=== PATIENT | female | born 1935 | race Caucasian/White ===

== ENCOUNTER 2023-12-17 16:42 | Inpatient (IN) | payer MEDICARE, OTHER ==
[~2023-12-17] VITALS: Ht 165.1 cm; Wt 61.8 kg
[2023-12-17] MEDS ORDERED: APIX5TAB PO (17:20)
[2023-12-17] MEDS ORDERED: MEMA10TA PO (17:20)
[2023-12-17] MEDS ORDERED: FAMO10TA41 PO (17:20)
[2023-12-17] MEDS ORDERED: COLL30OI TOP (17:20)
[2023-12-17] MEDS ORDERED: NA P133E RC (17:20)
[2023-12-17] MEDS ORDERED: MAGN400O6 PO (17:20)
[2023-12-17] MEDS ORDERED: ASCO500C18 PO (17:20)
[2023-12-17] MEDS ORDERED: VALP250S3 PO (17:20)
[2023-12-17] MEDS ORDERED: DOCU100T2 PO (17:20)
[2023-12-17] MEDS ORDERED: AMLO5TAB4 PO (17:20)
[2023-12-17] MEDS ORDERED: MELA3CAP2 PO (17:20)
[2023-12-17] MEDS ORDERED: MIRT7.5T10 PO (17:20)
[2023-12-17] MEDS ORDERED: ACET325C7 PO (17:20)
[2023-12-17] MEDS ORDERED: BISA10SU61 RC (17:20)
[2023-12-17] MEDS ORDERED: AMIN30LI2 PO (17:20)
[2023-12-17] MEDS ORDERED: MULT-213 PO (17:20)
[2023-12-17] MEDS ORDERED: ZINC220T4 PO (17:20)
[2023-12-17 18:11] LABS: BASOPHILS % (AUTO) 0.6 % (0.0-2.0); EOSINOPHILS # (AUTO) 0.6 K/uL (0.0-0.7); EOSINOPHILS % (AUTO) 9.4 % (0.0-7.0); HEMATOCRIT 36.8 % (31.2-41.9); HEMOGLOBIN 11.6 g/dL (10.9-14.3); LYMPHOCYTES # (AUTO) 1.3 K/uL (0.8-4.8); LYMPHOCYTES % (AUTO) 21.4 % (20.5-51.5); MEAN CORPUSCULAR HGB CONC 32 g/dL (32.3-35.6); MEAN CORPUSCULAR VOLUME 91.8 fL (75.5-95.3); MONOCYTES # (AUTO) 0.5 K/uL (0.1-1.30); MONOCYTES % (AUTO) 7.6 % (0.0-11.0); NEUTROPHILS # (AUTO) 3.8 K/uL (1.8-8.9); PLATELET COUNT (AUTO) 222 K/uL (179-408); RED BLOOD CELL COUNT(AUTO) 4.01 MIL/uL (3.63-4.92); RED CELL DISTRIBUTION WIDTH 14.3 % (12.3-17.7); WHITE BLOOD COUNT (AUTO) 6.3 K/uL (3.8-11.8)
[2023-12-17 18:13] LABS: DIFFERENTIAL COMMENT 1
[2023-12-17] MEDS ORDERED: ACETAMINOPHEN 325 MG TABLET PO PRN (18:15)
[2023-12-17] MEDS ORDERED: MAGNESIUM HYDROXIDE 30 ML LIQUID UDC PO PRN (18:15)
[2023-12-17] MEDS ORDERED: REMEDY ESSENTIAL ZINC PASTE 113 GM TP PRN (18:15)
[2023-12-17] MEDS ORDERED: ONDANSETRON 4 MG/2 ML VIAL IV PRN (18:15)
[2023-12-17] MEDS: IV NORMAL SALINE 500 ML BAG IV ONE (18:21)
[2023-12-17 18:23] LABS: *BILIRUBIN,URIN NEGATIVE (NEGATIVE); *BLOOD, URINE 1+ (NEGATIVE); *CLARITY,URINE CLOUDY (CLEAR); *COLOR,URINE YELLOW (YELLOW); *KETONES,URINE NEGATIVE (NEGATIVE); *PROTEIN,URINE NEGATIVE (NEGATIVE); *UROBILINOGEN,URINE 0.2 E.U./dl (NORMAL); LEUKOCYTE ESTERASE ,URINE TRACE (NEGATIVE); NITRITE, URINE NEGATIVE (NEGATIVE); UGLUCOSE NEGATIVE (NEGATIVE)
[2023-12-17 18:25] LABS: WBC,URINE 0-3 /HPF (0-3)
[2023-12-17 18:38] LABS: CALCIUM 9.1 mg/dL (8.5-10.1); POTASSIUM 4.7 mmol/L (3.5-5.1)
[2023-12-17 18:45] LABS: ALBUMIN 2.9 g/dL (3.4-5.0); BILIRUBIN,DIRECT 0.1 mg/dL (0.0-0.2); BILIRUBIN,TOTAL 0.4 mg/dL (0.2-1.0); TOTAL PROTEIN, SERUM 7.4 g/dL (6.4-8.2)
[2023-12-17] MEDS ORDERED: LORAZEPAM 2 MG/1 ML VIAL ONE (19:20)
[2023-12-17] MEDS ORDERED: CEFTRIAXONE /D5W 50ML IVPB **ER PYXIS IV ONE (19:34)
[2023-12-17] MEDS: AZITHROMYCIN IV 500 MG in IV DEXTROSE 5% 250 ML IV ONE (19:40)
[2023-12-17] MEDS: LORAZEPAM 2 MG/1 ML VIAL IV ONE (19:40)
[2023-12-17] MEDS: CEFTRIAXONE 1 G in IV DEXTROSE 5% 50 ML IV ONE (19:40)
[2023-12-17] MEDS ORDERED: AZITHROMYCIN 500MG/ D5W 250ML IVPB **ER PYXIS ONLY IV ONE (19:41)
[2023-12-17] MEDS ORDERED: DEXTROSE 50% 50 ML DISP.SYRIN ONE (20:45)
[2023-12-17] MEDS: DEXTROSE 50% 50 ML DISP.SYRIN IV ONE (20:50)
[2023-12-17] MEDS ORDERED: METOCLOPRAMIDE HCL 10 MG/2 ML VIAL IV ONE (21:30)
[2023-12-17 22:45] VITALS: BP 120/69; TEMP 96.4; O2SAT 95
[2023-12-18 04:00] VITALS: BP 93/54; TEMP 98; O2SAT 95
[2023-12-18 06:00] VITALS: BP 95/55; TEMP 98.2; O2SAT 96
[2023-12-18 07:38] LABS: BASOPHILS % (AUTO) 0.4 % (0.0-2.0); EOSINOPHILS # (AUTO) 0.6 K/uL (0.0-0.7); EOSINOPHILS % (AUTO) 12.2 % (0.0-7.0); HEMATOCRIT 33.4 % (31.2-41.9); HEMOGLOBIN 10.8 g/dL (10.9-14.3); LYMPHOCYTES # (AUTO) 1.3 K/uL (0.8-4.8); MEAN CORPUSCULAR HEMOGLOBIN 29.4 uug (24.7-32.8); MEAN CORPUSCULAR HGB CONC 32 g/dL (32.3-35.6); MEAN CORPUSCULAR VOLUME 91.3 fL (75.5-95.3); MONOCYTES # (AUTO) 0.3 K/uL (0.1-1.30); MONOCYTES % (AUTO) 6.6 % (0.0-11.0); NEUTROPHILS # (AUTO) 2.8 K/uL (1.8-8.9); NEUTROPHILS % (AUTO) 54.8 % (38.5-71.5); PLATELET COUNT (AUTO) 187 K/uL (179-408); RED BLOOD CELL COUNT(AUTO) 3.66 MIL/uL (3.63-4.92); RED CELL DISTRIBUTION WIDTH 14.4 % (12.3-17.7)
[2023-12-18 07:57] LABS: CALCIUM 8.1 mg/dL (8.5-10.1); CREATININE 0.9 mg/dL (0.6-1.3); MAGNESIUM 2.1 mg/dL (1.8-2.4); PHOSPHOROUS 3.1 mg/dL (2.5-4.9)
[2023-12-18 07:58] LABS: DIFFERENTIAL COMMENT 1
[2023-12-18 11:05] VITALS: BP 125/78; TEMP 98.4; O2SAT 95
[2023-12-18 15:11] VITALS: BP 129/87; TEMP 97.6; O2SAT 96
[2023-12-18 21:20] VITALS: BP 116/83; TEMP 98.4; O2SAT 96
[2023-12-19 06:00] VITALS: BP 106/62; TEMP 98.6; O2SAT 96
[2023-12-19 07:32] LABS: CALCIUM 8.6 mg/dL (8.5-10.1); CREATININE 0.9 mg/dL (0.6-1.3)
[2023-12-19 07:33] LABS: BASOPHILS % (AUTO) 0.3 % (0.0-2.0); EOSINOPHILS # (AUTO) 0.6 K/uL (0.0-0.7); EOSINOPHILS % (AUTO) 9.9 % (0.0-7.0); HEMATOCRIT 31.2 % (31.2-41.9); HEMOGLOBIN 10.3 g/dL (10.9-14.3); LYMPHOCYTES # (AUTO) 1.3 K/uL (0.8-4.8); LYMPHOCYTES % (AUTO) 22.3 % (20.5-51.5); MEAN CORPUSCULAR HEMOGLOBIN 29.7 uug (24.7-32.8); MEAN CORPUSCULAR HGB CONC 33 g/dL (32.3-35.6); MONOCYTES # (AUTO) 0.3 K/uL (0.1-1.30); MONOCYTES % (AUTO) 5.6 % (0.0-11.0); NEUTROPHILS # (AUTO) 3.5 K/uL (1.8-8.9); NEUTROPHILS % (AUTO) 61.9 % (38.5-71.5); PLATELET COUNT (AUTO) 186 K/uL (179-408); RED BLOOD CELL COUNT(AUTO) 3.47 MIL/uL (3.63-4.92); RED CELL DISTRIBUTION WIDTH 14.1 % (12.3-17.7); WHITE BLOOD COUNT (AUTO) 5.6 K/uL (3.8-11.8)
[2023-12-19 07:38] LABS: DIFFERENTIAL COMMENT 1
[2023-12-19] MEDS: AZITHROMYCIN IV 500 MG in IV DEXTROSE 5% 250 ML IV SCH (10:53)
[2023-12-19 11:08] VITALS: BP 114/61; TEMP 98.2; O2SAT 96
[2023-12-19] MEDS: TRIAMCINOLONE ACET 0.1% CREAM 15 GM TUBE TOP PRN (15:23)
[2023-12-19 15:25] VITALS: BP 125/85; TEMP 97.8; O2SAT 96
[2023-12-19] MEDS ORDERED: BISACODYL 10 MG SUPP.RECT RC PRN (17:30)
[2023-12-19] MEDS ORDERED: MAGNESIUM HYDROXIDE 30 ML LIQUID UDC PO PRN (17:30)
[2023-12-19] MEDS ORDERED: FLEET ENEMA 133 ML BOTTLE RC PRN (17:30)
[2023-12-19 20:00] VITALS: BP 105/43; TEMP 98.8; O2SAT 94
[2023-12-19] MEDS: MIRTAZAPINE 15 MG TABLET PO SCH (20:48)
[2023-12-19] MEDS: MELATONIN 3 MG TABLET PO SCH (20:48)
[2023-12-20] MEDS: FAMOTIDINE 20 MG TABLET PO SCH (05:12)
[2023-12-20 06:56] VITALS: BP 120/67; TEMP 98; O2SAT 100
[2023-12-20] MEDS ORDERED: COLLAGENASE OINT 30 GM TUBE TOP SCH (09:00)
[2023-12-20] MEDS: MEMANTINE HCL 10 MG TABLET PO SCH (11:07)
[2023-12-20] MEDS: DOCUSATE SODIUM 100 MG CAPSULE PO SCH (11:07)
[2023-12-20] MEDS: VALPROIC ACID 250 MG/5 ML LIQUID UDC PO SCH (11:07)
[2023-12-20] MEDS: AMLODIPINE 5 MG TABLET PO SCH (11:07)
[2023-12-20] MEDS: APIXABAN 5 MG TABLET PO SCH (11:09)
[2023-12-20 11:48] VITALS: BP 110/67; TEMP 97.8; O2SAT 94
[2023-12-20] MEDS: MEDIHONEY= THERAHONEY 1.5 OZ TUBE TOP SCH (13:00)
== END 2023-12-20 14:00 | DRG 193 ==
LOC: ER 16:46 → MEDSURG3 21:31
PROVIDERS: ADMIT Internal Medicine; ATTEND Internal Medicine
DX: J15.9 Unspecified bacterial pneumonia (principal); E43 Unspecified severe protein-calorie malnutrition; G93.41 Metabolic encephalopathy; E86.0 Dehydration; R53.1 Weakness; E88.09 Other disorders of plasma-protein metabolism, not elsewhere classified; I48.91 Unspecified atrial fibrillation; Z79.01 Long term (current) use of anticoagulants; E78.5 Hyperlipidemia, unspecified; R79.89 Other specified abnormal findings of blood chemistry; R21 Rash and other nonspecific skin eruption; I12.9 Hypertensive chronic kidney disease with stage 1 through stage 4 chronic kidney disease, or unspecified chronic kidney disease; N18.9 Chronic kidney disease, unspecified; Z79.899 Other long term (current) drug therapy; F03.90 Unspecified dementia, unspecified severity, without behavioral disturbance, psychotic disturbance, mood disturbance, and anxiety; Z86.59 Personal history of other mental and behavioral disorders
CPT/HCPCS: 36415; 71045; 83735; 84100; 84443; 85025; 87040; 93005; C1758; G0378; J0456; J0696; J2060; J3490; J7040; J7050